=== PATIENT | male | born 1985 | race Caucasian/White ===

== ENCOUNTER 2021-09-16 00:48 | Emergency (ER) | payer OTHER ==
[2021-09-17 19:08] LABS: CHLAMYDIA TRACHOMATIS, NAA Negative (Negative); NEISSERIA GONORRHOEAE, NAA Negative (Negative)
== END 2021-09-16 02:14 | disposition home or self-care (01) ==
LOC: ER1 00:48
PROVIDERS: Physician Assistant
DX: Z20.2 Contact with and (suspected) exposure to infections with a predominantly sexual mode of transmission (principal); F17.210 Nicotine dependence, cigarettes, uncomplicated
CPT/HCPCS: 81001; 87086; 96372; 99283; J0696